=== PATIENT | female | born 1945 | race Caucasian/White ===

== ENCOUNTER 2016-04-28 14:26 | Outpatient (CLI) | payer MEDICARE | END 2016-04-28 14:27 | disposition home or self-care (01) | DX: Z12.31 Encounter for screening mammogram for malignant neoplasm of breast (principal) ==

== ENCOUNTER 2016-08-03 11:11 | Outpatient (CLI) | payer MEDICARE | END 2016-08-03 11:12 | disposition home or self-care (01) | DX: N39.0 Urinary tract infection, site not specified (principal) ==

== ENCOUNTER 2016-09-26 11:45 | Outpatient (CLI) | payer MEDICARE ==
[2016-09-26 19:52] LABS: WBC,URINE >25 /HPF (0-5)
== END 2016-09-26 11:46 | disposition home or self-care (01) ==
LOC: LAB.R 11:45
PROVIDERS: ATTEND Internal Medicine
DX: R30.0 Dysuria (principal)
CPT/HCPCS: 81001; 87077; 87086

== ENCOUNTER 2017-08-25 14:03 | Outpatient (CLI) | payer OTHER ==
[2017-08-25 18:27] LABS: BILIRUBIN,URINE NEGATIVE (NEGATIVE); GLUCOSE, URINE (UA) NEGATIVE (NEGATIVE); KETONES,URINE (UA) NEGATIVE (NEGATIVE); LEUKOCYTE ESTERASE, URINE SMALL (NEGATIVE); NITRITE,URINE POSITIVE (NEGATIVE); OCCULT BLOOD,URINE SMALL (NEGATIVE); PH,URINE 5.5 PH (5.0-7.5); PROTEIN,URINE NEGATIVE (NEGATIVE); UROBILINOGEN,URINE 0.2 (NORMAL) E.U./dL (NORMAL)
[2017-08-25 18:28] LABS: CLARITY,URINE CLEAR (CLEAR)
[2017-08-25 19:13] LABS: BACTERIA,URINE Many /HPF (None Seen); RBC,URINE 0-5 /HPF (0-5); SQUAMOUS EPITHELIAL CELL,UR FEW Squamous (<= Few)
== END 2017-08-25 14:04 | disposition home or self-care (01) ==
LOC: LAB.F 14:03
PROVIDERS: ATTEND Surgery
DX: N39.0 Urinary tract infection, site not specified (principal)
CPT/HCPCS: 81001; 87086; 87181

== ENCOUNTER 2018-03-20 18:20 | Emergency (ER) | payer MEDICARE, OTHER ==
--- NOTE | 2018-03-20 19:41 | XRAY Report ---
Reason: shortness of breath, congestion Procedure Date: 03/20/2018 Accession Number: [id number] / [id number] Procedure: XR - Chest 2 View X-Ray CPT Code: 24583 FULL RESULT: EXAM: CHEST RADIOGRAPHY EXAM DATE: 03/20/2018 06:53 PM. CLINICAL HISTORY: Shortness of breath, congestion. COMPARISON: CHEST 2 VIEW PA/LAT 01/10/2013 11:59 AM. TECHNIQUE: 2 views. FINDINGS: Lungs/Pleura: There is irregular masslike opacity in the right lower lobe, with a small cystic-appearing area that could represent a cavitation. This is new compared to the prior study. Better aeration in the left midlung zone compared to the prior exam. No effusions or pneumothoraces. Mediastinum: Heart and mediastinal contours are unremarkable. Other: None. IMPRESSION: Irregular masslike opacity in the right lower lobe, probably with an area of cavitation. Could represent infectious etiology, but underlying neoplasm cannot be excluded. A chest CT preferably with contrast is recommended. RAD[facility]
--- NOTE | 2018-03-20 21:23 | ED Physician Documentation ---
PD HPI DYSPNEA - Stated complaint Stated Complaint: WHEEZING/THROAT PX - Chief complaint Chief Complaint: Resp - History obtained from History obtained from: Patient - History of Present Illness Timing - onset: How many days ago (3) Timing - duration: Days Timing - details: Gradual onset, Waxing and waning Pain level now: 0 Improved by: Other (no ameliorating factors) Worsened by: Laying flat Associated symptoms: Fever (Tmax 101 (yesterday)), Cough, Wheezing. No: Hemoptysis, Chest pain / discomfort, Palpitations, Diaphoresis, Bilateral edema, Unilateral edema Similar symptoms before: Has not had sx before Recently seen: Not recently seen Review of Systems Constitutional: reports: Fever. denies: Fatigue Cardiac: denies: Chest pain / pressure, Palpitations, Pedal edema, Calf pain Respiratory: reports: Dyspnea, Cough, Wheezing. denies: Hemoptysis GI: reports: Reviewed and negative : denies: Dysuria, Frequency Musculoskeletal: denies: Extremity swelling PD PAST MEDICAL HISTORY - Past Medical History Cardiovascular: Hypertension, High cholesterol Respiratory: None Endocrine/Autoimmune: None GI: Other : None HEENT: Chronic vision loss, Chronic hearing loss Psych: None Musculoskeletal: Osteoarthritis Derm: None - Past Surgical History Past Surgical History: Yes /[employer]: Hysterectomy - Present Medications Home Medications: Ambulatory Orders Medication Instructions Recorded Confirmed Cholecalciferol (Vitamin D3) 1,000 unit PO 04/17/13 04/17/13 [Vitamin D] Lotensin 4 04/17/13 04/17/13 Enoxaparin [Lovenox] 120 mg SUBQ Q24H #10 syringe 03/21/18 Warfarin [Coumadin] 5 mg PO 1400 #20 tablet 03/21/18 - Allergies Allergies/Adverse Reactions: Allergies Allergy/AdvReac Type Severity Reaction Status Date / Time ciprofloxacin [From Cipro] Allergy Unknown Verified 03/20/18 18:30 - Social History Does the pt smoke?: No Smoking Status: Never smoker Does the pt drink ETOH?: Yes ETOH Use: Wine Does the pt have substance abuse?: No - Immunizations Immunizations are current?: Yes - POLST Patient has POLST: No PD ED PE NORMAL - Vitals Vital signs reviewed: Yes - General General: Alert and oriented X 3, No acute distress, Well developed/nourished - HEENT HEENT: Moist mucous membranes - Neck Neck: Supple, no meningeal sign - Cardiac Cardiac: RRR, No murmur - Respiratory Respiratory: No respiratory distress, Other (bilateral expiratory wheeze) - Abdomen Abdomen: Soft, Non tender - Extremities Extremities: No edema Results - Vitals Vitals: Vital Signs - 24 hr 03/20/18 03/20/18 03/21/18 18:24 20:09 01:37 Temperature 36.6 C 37.1 C Heart Rate 83 78 84 Respiratory 20 18 15 Rate Blood Pressure 146/94 H 129/91 H 139/89 H O2 Saturation 93 95 95 Oxygen O2 Source Room air - Labs Labs: Laboratory Tests 03/20/18 03/20/18 03/20/18 21:50 21:50 21:50 WBC 5.8 RBC 4.76 Hgb 14.4 Hct 41.9 MCV 88.1 MCH 30.2 MCHC 34.3 RDW 13.7 Plt Count 155 MPV 7.5 L Neut # (Auto) 2.9 Lymph # (Auto) 2.0 [place] # (Auto) 0.8 Eos # (Auto) 0.1 Baso # (Auto) 0.0 Absolute Nucleated RBC 0.01 Nucleated RBC % 0.1 PT 12.8 H INR 1.1 APTT 27.9 Sodium 137 Potassium 3.3 L Chloride 104 Carbon Dioxide 24 Anion Gap 9.0 BUN 13 Creatinine 0.7 Estimated GFR (MDRD) 82 L Glucose 125 H Calcium 9.2 Total Bilirubin 0.7 AST 16 ALT 12 Alkaline Phosphatase 62 Total Protein 7.1 Albumin 3.9 Globulin 3.2 Albumin/Globulin Ratio 1.2 Lipase 34 - Rads (name of study) chest xray Radiology: Prelim report reviewed, See rad report CT chest w/ contrast Radiology: Prelim report reviewed, See rad report PD MEDICAL DECISION MAKING - ED course Complexity details: reviewed results, re-evaluated patient, considered differential, d/w patient ED course: D/W Dr. Ojeda; she says patient can be treated outpatient setting if symptoms are controlled and vital signs are stable. Patient feels quite comfortable with d/c home. In regards to anticoagulation, patient specifically requests warfarin. Her is on warfarin and she is familiar with the testing it requires and the possible adjustments needed in dosing according to PT/INR testing; she prefers this medication over the NOAC medications because it can be reliably and rapidly reversed. Departure - Departure Disposition: Home, Self Care Clinical Impression: Pulmonary embolism Qualifiers: Pulmonary embolism type: other Chronicity: acute Acute cor pulmonale presence: without acute cor pulmonale Qualified Code(s): I26.99 - Other pulmonary embolism without acute cor pulmonale Condition: Good Instructions: Lovenox, Warfarin Follow-Up: ZELALEM MOULTON DO [Primary Care Provider] - Within 3 Days Prescriptions: Enoxaparin [Lovenox] 120 mg SUBQ Q24H #10 syringe Warfarin [Coumadin] 5 mg PO 1400 #20 tablet Discharge Date/Time: 03/21/18 02:54
[2018-03-20] MEDS ORDERED: IPRATROPIUM/ALBUTEROL 3 ML NEB INH STA (21:33)
[2018-03-20 21:56] LABS: BASOPHILS % (AUTO) 0.6 %; EOSINOPHILS # (AUTO) 0.1 10^3/uL (0.0-0.7); EOSINOPHILS % (AUTO) 1.7 %; HGB - HEMOGLOBIN 14.4 g/dL (12.0-16.0); LYMPHOCYTES % (AUTO) 34.5 %; MEAN CORPUSCULAR HEMOGLOBIN 30.2 pg (27.0-31.0); MEAN CORPUSCULAR HGB CONC 34.3 g/dL (32.0-36.0); MEAN CORPUSCULAR VOLUME 88.1 fL (81.0-99.0); MEAN PLATELET VOLUME 7.5 fL (7.9-10.8); MONOCYTES # (AUTO) 0.8 10^3/uL (0.0-1.0); MONOCYTES % (AUTO) 13.2 %; NEUTROPHILS # (AUTO) 2.9 10^3/uL (1.5-6.6); PLT - PLATELET COUNT 155 10^3/uL (130-450); RED BLOOD COUNT 4.76 10^6/uL (4.20-5.40); RED CELL DISTRIBUTION WIDTH 13.7 % (12.0-15.0); WHITE BLOOD COUNT 5.8 x10^3/uL (4.8-10.8)
[2018-03-20 22:19] LABS: ALBUMIN 3.9 g/dL (3.2-5.5); ALBUMIN/GLOBULIN RATIO 1.2 (1.0-2.2); BILIRUBIN,TOTAL 0.7 mg/dL (0.2-1.0); CALCIUM 9.2 mg/dL (8.5-10.3); CREATININE 0.7 mg/dL (0.4-1.0); TOTAL PROTEIN 7.1 g/dL (6.7-8.2)
[2018-03-20] MEDS ORDERED: IOVERSOL 320 100 ML VIAL IVP ONE (23:58)
--- NOTE | 2018-03-21 00:30 | CT Report ---
Reason: right lower lobe mass Procedure Date: 03/21/2018 Accession Number: [id number] / [id number] Procedure: CT - Chest W/ CPT Code: FULL RESULT: EXAM: CT CHEST EXAM DATE: 03/21/2018 12:20 AM. CLINICAL HISTORY: Right lower lobe mass. COMPARISONS: None. TECHNIQUE: Routine helical CT imaging was performed through the chest. IV contrast: 100 mL Optiray 320. Reconstructions: Coronal and sagittal. In accordance with CT protocol optimization, one or more of the following dose reduction techniques were utilized for this exam: automated exposure control, adjustment of mA and/or KV based on patient size, or use of iterative reconstructive technique. FINDINGS: Lungs/Pleura: There is a 5.6 x 2.7 cm focus of right lower lobe airspace consolidation with ill-defined margins. No associated pleural effusion. The left lung is clear. Mediastinum: Normal heart size. No pericardial effusion. Borderline dilatation of the ascending thoracic aorta which measures 4 cm in diameter. There is an eccentric right lower lobe pulmonary artery filling defect with more acute appearing filling defects in the right upper and lower lobe segmental branches. Bones: Unremarkable. Visualized Abdomen: Bilateral upper pole renal cyst. A small stone is seen within the gallbladder. Other: There is a 3.0 x 2.4 cm exophytic posterior right thyroid lobe nodule abutting the esophagus. IMPRESSION: 1. Multiple right lung pulmonary emboli. There is right lower lobe airspace consolidation the appearance of which is more consistent with pneumonia or pulmonary infarct. 2. Cholelithiasis. 3. Borderline dilatation of the ascending thoracic aorta to 4 cm. 4. Exophytic, 3.0 x 2.4 cm posterior right thyroid lobe nodule. [facility]
[2018-03-21 01:38] VITALS: BP 139/89
[2018-03-21] MEDS ORDERED: ENOXAPARIN 100 MG/ML SYRINGE SUBQ STA (02:35)
[2018-03-21] MEDS ORDERED: WARFARIN 5 MG TABLET PO STA (02:35)
[2018-03-21 02:52] LABS: INR 1.1 (0.8-1.2); PT - PROTHROMBIN TIME 12.8 secs (9.9-12.6)
[2018-03-21] MEDS ORDERED: IOVERSOL 320 100 ML VIAL IVP ONE ×2 (03:29)
== END 2018-03-21 02:54 | disposition home or self-care (01) ==
LOC: ED 18:20
DX: I26.99 Other pulmonary embolism without acute cor pulmonale (principal); Z79.01 Long term (current) use of anticoagulants; I10 Essential (primary) hypertension; E78.00 Pure hypercholesterolemia, unspecified
CPT/HCPCS: 36415; 71046; 71260; 80053; 83690; 85025; 85610; 85730; 94640; 99283; 99284; A9270; J1650; Q9967

== ENCOUNTER 2018-05-08 13:41 | Outpatient (CLI) | payer MEDICARE ==
[2018-05-08 17:47] LABS: INR 3.4 (0.8-1.2); PT - PROTHROMBIN TIME 38.4 secs (9.9-12.6)
== END 2018-05-08 13:42 | disposition home or self-care (01) ==
LOC: LAB.F 13:41
PROVIDERS: ATTEND Pharmacist
DX: Z79.01 Long term (current) use of anticoagulants (principal); I26.99 Other pulmonary embolism without acute cor pulmonale
CPT/HCPCS: 36415; 85610

== ENCOUNTER 2019-05-24 13:14 | Outpatient (CLI) | payer MEDICARE | END 2019-05-24 13:15 | disposition home or self-care (01) | LOC: LAB.S 13:14 | PROVIDERS: ATTEND Internal Medicine | DX: I26.99 Other pulmonary embolism without acute cor pulmonale (principal); Z79.01 Long term (current) use of anticoagulants | CPT/HCPCS: 85610 ==

== ENCOUNTER 2019-06-12 09:42 | Outpatient (CLI) | payer MEDICARE | END 2019-06-12 09:43 | disposition home or self-care (01) | LOC: LAB.S 09:42 | PROVIDERS: ATTEND Internal Medicine | DX: I26.99 Other pulmonary embolism without acute cor pulmonale (principal); Z79.01 Long term (current) use of anticoagulants | CPT/HCPCS: 85610 ==

== ENCOUNTER 2019-07-15 08:29 | Outpatient (CLI) | payer MEDICARE | END 2019-07-15 08:30 | disposition home or self-care (01) | LOC: LAB 08:29 | PROVIDERS: ATTEND Internal Medicine | DX: I26.99 Other pulmonary embolism without acute cor pulmonale (principal); Z79.01 Long term (current) use of anticoagulants | CPT/HCPCS: 85610 ==

== ENCOUNTER 2019-08-01 07:22 | Outpatient (CLI) | payer MEDICARE | END 2019-08-01 07:23 | disposition home or self-care (01) | LOC: LAB 07:22 | PROVIDERS: ATTEND Internal Medicine | DX: I26.99 Other pulmonary embolism without acute cor pulmonale (principal); Z79.01 Long term (current) use of anticoagulants | CPT/HCPCS: 85610 ==

== ENCOUNTER 2019-08-29 13:38 | Outpatient (CLI) | payer MEDICARE | END 2019-08-29 13:39 | disposition home or self-care (01) | LOC: LAB 13:38 | PROVIDERS: ATTEND Internal Medicine | DX: I26.99 Other pulmonary embolism without acute cor pulmonale (principal); Z79.01 Long term (current) use of anticoagulants | CPT/HCPCS: 85610 ==

== ENCOUNTER 2019-10-08 14:34 | Outpatient (CLI) | payer MEDICARE | END 2019-10-08 14:35 | disposition home or self-care (01) | LOC: LAB.S 14:34 | PROVIDERS: ATTEND Internal Medicine | DX: Z79.01 Long term (current) use of anticoagulants (principal) | CPT/HCPCS: 85610 ==

== ENCOUNTER 2019-10-11 11:24 | Outpatient (CLI) | payer MEDICARE | END 2019-10-11 11:25 | disposition home or self-care (01) | LOC: LAB.S 11:24 | PROVIDERS: ATTEND Urology | DX: R30.0 Dysuria (principal) | CPT/HCPCS: 87086 ==

== ENCOUNTER 2019-10-15 15:09 | Outpatient (CLI) | payer MEDICARE | END 2019-10-15 15:10 | disposition home or self-care (01) | LOC: LAB.S 15:09 | PROVIDERS: ATTEND Internal Medicine | DX: Z79.01 Long term (current) use of anticoagulants (principal) | CPT/HCPCS: 85610 ==

== ENCOUNTER 2019-10-22 14:25 | Outpatient (CLI) | payer MEDICARE | END 2019-10-22 14:26 | disposition home or self-care (01) | LOC: LAB.S 14:25 | PROVIDERS: ATTEND Internal Medicine | DX: Z79.01 Long term (current) use of anticoagulants (principal) | CPT/HCPCS: 85610 ==

== ENCOUNTER 2019-11-19 14:18 | Outpatient (CLI) | payer MEDICARE | END 2019-11-19 14:19 | disposition home or self-care (01) | LOC: LAB.S 14:18 | PROVIDERS: ATTEND Internal Medicine | DX: Z79.01 Long term (current) use of anticoagulants (principal) | CPT/HCPCS: 85610 ==

== ENCOUNTER 2019-12-20 15:14 | Outpatient (CLI) | payer MEDICARE | END 2019-12-20 15:15 | disposition home or self-care (01) | LOC: LAB.S 15:14 | PROVIDERS: ATTEND Internal Medicine | DX: Z79.01 Long term (current) use of anticoagulants (principal) | CPT/HCPCS: 85610 ==

== ENCOUNTER 2020-01-01 14:21 | Outpatient (CLI) | payer MEDICARE | END 2020-01-01 14:22 | disposition home or self-care (01) | LOC: LAB.S 14:21 | PROVIDERS: ATTEND Internal Medicine | DX: Z79.01 Long term (current) use of anticoagulants (principal) | CPT/HCPCS: 85610 ==

== ENCOUNTER 2020-01-24 16:58 | Outpatient (CLI) | payer MEDICARE ==
[2020-01-24 20:42] LABS: BILIRUBIN,URINE NEGATIVE (NEGATIVE); GLUCOSE, URINE (UA) NEGATIVE (NEGATIVE); KETONES,URINE (UA) NEGATIVE (NEGATIVE); LEUKOCYTE ESTERASE, URINE MODERATE (NEGATIVE); NITRITE,URINE NEGATIVE (NEGATIVE); OCCULT BLOOD,URINE SMALL (NEGATIVE); PROTEIN,URINE NEGATIVE (NEGATIVE); UROBILINOGEN,URINE 0.2 (NORMAL) E.U./dL (NORMAL)
[2020-01-24 21:02] LABS: BACTERIA,URINE Many /HPF (None Seen); CLARITY,URINE CLOUDY (CLEAR); SQUAMOUS EPITHELIAL CELL,UR RARE Squamous (<= Few)
[2020-01-24 21:03] LABS: CRYSTALS,URINE 3-5 Calcium Oxalate /LPF
== END 2020-01-24 16:59 | disposition home or self-care (01) ==
LOC: LAB.S 16:58
PROVIDERS: ATTEND Internal Medicine
DX: R82.90 Unspecified abnormal findings in urine (principal); R35.0 Frequency of micturition
CPT/HCPCS: 81001; 87086; 87181

== ENCOUNTER 2020-02-19 15:30 | Outpatient (CLI) | payer MEDICARE | END 2020-02-19 15:31 | disposition home or self-care (01) | LOC: LAB.S 15:30 | PROVIDERS: ATTEND Internal Medicine | DX: Z79.01 Long term (current) use of anticoagulants (principal) | CPT/HCPCS: 85610 ==

== ENCOUNTER 2020-03-20 13:42 | Outpatient (CLI) | payer MEDICARE | END 2020-03-20 13:43 | disposition home or self-care (01) | LOC: LAB.S 13:42 | PROVIDERS: ATTEND Internal Medicine | DX: Z79.01 Long term (current) use of anticoagulants (principal) | CPT/HCPCS: 85610 ==

== ENCOUNTER 2020-03-21 13:48 | Outpatient (CLI) | payer MEDICARE ==
[2020-03-21 18:51] LABS: BILIRUBIN,URINE NEGATIVE (NEGATIVE); GLUCOSE, URINE (UA) NEGATIVE (NEGATIVE); KETONES,URINE (UA) NEGATIVE (NEGATIVE); LEUKOCYTE ESTERASE, URINE SMALL (NEGATIVE); NITRITE,URINE NEGATIVE (NEGATIVE); OCCULT BLOOD,URINE SMALL (NEGATIVE); PROTEIN,URINE NEGATIVE (NEGATIVE); UROBILINOGEN,URINE 0.2 (NORMAL) E.U./dL (NORMAL)
[2020-03-21 18:57] LABS: BACTERIA,URINE Many /HPF (None Seen); CLARITY,URINE HAZY (CLEAR); SQUAMOUS EPITHELIAL CELL,UR FEW Squamous (<= Few); WBC CLUMPS,URINE PRESENT
== END 2020-03-21 13:49 | disposition home or self-care (01) ==
LOC: LAB.S 13:48
PROVIDERS: ATTEND Surgery
DX: R30.0 Dysuria (principal)
CPT/HCPCS: 81001; 87077; 87086; 87181

== ENCOUNTER 2020-04-14 14:22 | Outpatient (CLI) | payer MEDICARE ==
[2020-04-14 20:45] LABS: BILIRUBIN,URINE NEGATIVE (NEGATIVE); GLUCOSE, URINE (UA) NEGATIVE (NEGATIVE); KETONES,URINE (UA) NEGATIVE (NEGATIVE); LEUKOCYTE ESTERASE, URINE TRACE (NEGATIVE); NITRITE,URINE NEGATIVE (NEGATIVE); OCCULT BLOOD,URINE SMALL (NEGATIVE); PH,URINE 5.5 PH (5.0-7.5); PROTEIN,URINE NEGATIVE (NEGATIVE); UROBILINOGEN,URINE 0.2 (NORMAL) E.U./dL (NORMAL)
[2020-04-14 20:53] LABS: CLARITY,URINE HAZY (CLEAR)
[2020-04-14 20:54] LABS: BACTERIA,URINE Few /HPF (None Seen); RBC,URINE 0-5 /HPF (0-5); SQUAMOUS EPITHELIAL CELL,UR FEW Squamous (<= Few)
== END 2020-04-14 14:23 | disposition home or self-care (01) ==
LOC: LAB.S 14:22
PROVIDERS: ATTEND Urology
DX: R30.0 Dysuria (principal)
CPT/HCPCS: 81001; 87086; 87181

== ENCOUNTER 2020-04-21 13:06 | Outpatient (CLI) | payer MEDICARE | END 2020-04-21 13:07 | disposition home or self-care (01) | LOC: LAB.S 13:06 | PROVIDERS: ATTEND Internal Medicine | DX: Z79.01 Long term (current) use of anticoagulants (principal) | CPT/HCPCS: 85610 ==

== ENCOUNTER 2020-05-05 07:00 | Outpatient (CLI) | payer MEDICARE | END 2020-05-05 23:59 | disposition home or self-care (01) | LOC: LAB 07:00 | PROVIDERS: ATTEND Internal Medicine | DX: Z79.01 Long term (current) use of anticoagulants (principal) | CPT/HCPCS: 85610 ==

== ENCOUNTER 2020-06-12 18:27 | Outpatient (CLI) | payer MEDICARE | END 2020-06-12 18:28 | disposition home or self-care (01) | LOC: COV 18:27 | PROVIDERS: ATTEND Dermatology | DX: Z01.812 Encounter for preprocedural laboratory examination (principal); C44.311 Basal cell carcinoma of skin of nose; Z20.822 Contact with and (suspected) exposure to COVID-19 ==

== ENCOUNTER 2020-06-22 14:31 | Outpatient (CLI) | payer MEDICARE | END 2020-06-22 14:32 | disposition home or self-care (01) | LOC: LAB.S 14:31 | PROVIDERS: ATTEND Internal Medicine | DX: Z79.01 Long term (current) use of anticoagulants (principal) | CPT/HCPCS: 85610 ==

== ENCOUNTER 2020-07-13 12:48 | Outpatient (CLI) | payer MEDICARE | END 2020-07-13 12:49 | disposition home or self-care (01) | LOC: LAB 12:48 | PROVIDERS: ATTEND Internal Medicine | DX: Z01.812 Encounter for preprocedural laboratory examination (principal); Z79.01 Long term (current) use of anticoagulants; C44.311 Basal cell carcinoma of skin of nose; Z20.822 Contact with and (suspected) exposure to COVID-19 | CPT/HCPCS: 85610; U0004 ==

== ENCOUNTER 2020-07-13 17:15 | Outpatient (CLI) | payer MEDICARE | END 2020-07-13 17:16 | disposition home or self-care (01) | LOC: COV 17:15 | PROVIDERS: ATTEND Dermatology | DX: Z01.812 Encounter for preprocedural laboratory examination (principal); C44.311 Basal cell carcinoma of skin of nose; Z20.822 Contact with and (suspected) exposure to COVID-19 ==

== ENCOUNTER 2020-08-24 14:43 | Outpatient (CLI) | payer MEDICARE | END 2020-08-24 14:44 | disposition home or self-care (01) | LOC: LAB.S 14:43 | PROVIDERS: ATTEND Internal Medicine | DX: Z79.01 Long term (current) use of anticoagulants (principal) | CPT/HCPCS: 36416; 85610 ==

== ENCOUNTER 2020-09-25 14:50 | Outpatient (CLI) | payer MEDICARE | END 2020-09-25 14:51 | disposition home or self-care (01) | LOC: LAB.S 14:50 | PROVIDERS: ATTEND Internal Medicine | DX: Z79.01 Long term (current) use of anticoagulants (principal) | CPT/HCPCS: 85610 ==

== ENCOUNTER 2020-10-23 15:28 | Outpatient (CLI) | payer MEDICARE | END 2020-10-23 15:29 | disposition home or self-care (01) | LOC: LAB.S 15:28 | PROVIDERS: ATTEND Internal Medicine | DX: Z79.01 Long term (current) use of anticoagulants (principal) | CPT/HCPCS: 36416; 85610 ==

== ENCOUNTER 2020-11-27 15:11 | Outpatient (CLI) | payer MEDICARE | END 2020-11-27 15:12 | disposition home or self-care (01) | LOC: LAB.S 15:11 | PROVIDERS: ATTEND Internal Medicine | DX: Z79.01 Long term (current) use of anticoagulants (principal) | CPT/HCPCS: 85610 ==

== ENCOUNTER 2020-12-30 15:00 | Outpatient (CLI) | payer MEDICARE | END 2020-12-30 15:01 | disposition home or self-care (01) | LOC: LAB.S 15:00 | PROVIDERS: ATTEND Internal Medicine | DX: Z79.01 Long term (current) use of anticoagulants (principal) | CPT/HCPCS: 36416; 85610 ==

== ENCOUNTER 2021-01-29 15:03 | Outpatient (CLI) | payer MEDICARE | END 2021-01-29 15:04 | disposition home or self-care (01) | LOC: LAB.S 15:03 | PROVIDERS: ATTEND Internal Medicine | DX: Z79.01 Long term (current) use of anticoagulants (principal) | CPT/HCPCS: 36416; 85610 ==

== ENCOUNTER 2021-03-02 10:07 | Outpatient (CLI) | payer MEDICARE | END 2021-03-02 10:08 | disposition home or self-care (01) | LOC: LAB.S 10:07 | PROVIDERS: ATTEND Internal Medicine | DX: Z79.01 Long term (current) use of anticoagulants (principal) | CPT/HCPCS: 36416; 85610 ==

== ENCOUNTER 2021-04-06 16:06 | Outpatient (CLI) | payer MEDICARE | END 2021-04-06 16:07 | disposition home or self-care (01) | LOC: LAB.S 16:06 | PROVIDERS: ATTEND Internal Medicine | DX: Z79.01 Long term (current) use of anticoagulants (principal) | CPT/HCPCS: 36416; 85610 ==

== ENCOUNTER 2021-05-17 14:25 | Outpatient (CLI) | payer MEDICARE | END 2021-05-17 14:26 | disposition home or self-care (01) | LOC: LAB.S 14:25 | PROVIDERS: ATTEND Internal Medicine | DX: Z79.01 Long term (current) use of anticoagulants (principal) | CPT/HCPCS: 36416; 85610 ==

== ENCOUNTER 2021-06-09 14:57 | Outpatient (CLI) | payer MEDICARE | END 2021-06-09 14:58 | disposition home or self-care (01) | LOC: LAB.S 14:57 | PROVIDERS: ATTEND Internal Medicine | DX: Z79.01 Long term (current) use of anticoagulants (principal) | CPT/HCPCS: 36416; 85610 ==

== ENCOUNTER 2021-07-09 15:14 | Outpatient (CLI) | payer MEDICARE | END 2021-07-09 15:15 | disposition home or self-care (01) | LOC: LAB.S 15:14 | PROVIDERS: ATTEND Internal Medicine | DX: Z79.01 Long term (current) use of anticoagulants (principal) | CPT/HCPCS: 36416; 85610 ==

== ENCOUNTER 2021-08-05 14:29 | Outpatient (CLI) | payer MEDICARE | END 2021-08-05 14:30 | disposition home or self-care (01) | LOC: LAB.S 14:29 | PROVIDERS: ATTEND Internal Medicine | DX: Z79.01 Long term (current) use of anticoagulants (principal) | CPT/HCPCS: 36416; 85610 ==

== ENCOUNTER 2021-08-17 11:39 | Outpatient (CLI) | payer MEDICARE | END 2021-08-17 11:40 | disposition home or self-care (01) | LOC: LAB.S 11:39 | PROVIDERS: ATTEND Internal Medicine | DX: Z79.01 Long term (current) use of anticoagulants (principal) | CPT/HCPCS: 36416; 85610 ==

== ENCOUNTER 2021-09-22 15:08 | Outpatient (CLI) | payer MEDICARE | END 2021-09-22 15:09 | disposition home or self-care (01) | LOC: LAB.S 15:08 | PROVIDERS: ATTEND Internal Medicine | DX: Z79.01 Long term (current) use of anticoagulants (principal) | CPT/HCPCS: 36416; 85610 ==

== ENCOUNTER 2021-10-22 08:35 | Outpatient (CLI) | payer MEDICARE | END 2021-10-22 08:36 | disposition home or self-care (01) | LOC: LAB.S 08:35 | PROVIDERS: ATTEND Internal Medicine | DX: Z79.01 Long term (current) use of anticoagulants (principal) | CPT/HCPCS: 36416; 85610 ==

== ENCOUNTER 2021-12-24 07:21 | Outpatient (CLI) | payer MEDICARE | END 2021-12-24 07:22 | disposition home or self-care (01) | LOC: LAB.S 07:21 | PROVIDERS: ATTEND Internal Medicine | DX: Z79.01 Long term (current) use of anticoagulants (principal) | CPT/HCPCS: 36416; 85610 ==

== ENCOUNTER 2022-01-25 09:29 | Outpatient (CLI) | payer MEDICARE | END 2022-01-25 09:30 | disposition home or self-care (01) | LOC: LAB.S 09:29 | PROVIDERS: ATTEND Internal Medicine | DX: Z79.01 Long term (current) use of anticoagulants (principal) | CPT/HCPCS: 36416; 85610 ==

== ENCOUNTER 2022-03-01 08:28 | Outpatient (CLI) | payer MEDICARE | END 2022-03-01 08:29 | disposition home or self-care (01) | LOC: LAB.S 08:28 | PROVIDERS: ATTEND Internal Medicine | DX: Z79.01 Long term (current) use of anticoagulants (principal) | CPT/HCPCS: 36416; 85610 ==

== ENCOUNTER 2022-03-30 11:20 | Outpatient (CLI) | payer MEDICARE | END 2022-03-30 11:21 | disposition home or self-care (01) | LOC: LAB.S 11:20 | PROVIDERS: ATTEND Internal Medicine | DX: Z79.01 Long term (current) use of anticoagulants (principal) | CPT/HCPCS: 36416; 85610 ==

== ENCOUNTER 2022-04-28 09:27 | Outpatient (CLI) | payer MEDICARE | END 2022-04-28 09:28 | disposition home or self-care (01) | LOC: LAB.S 09:27 | PROVIDERS: ATTEND Family Medicine | DX: Z79.01 Long term (current) use of anticoagulants (principal) | CPT/HCPCS: 36416; 85610 ==

== ENCOUNTER 2022-06-23 10:02 | Outpatient (CLI) | payer MEDICARE | END 2022-06-23 10:03 | disposition home or self-care (01) | LOC: LAB.S 10:02 | PROVIDERS: ATTEND Family Medicine | DX: Z79.01 Long term (current) use of anticoagulants (principal) | CPT/HCPCS: 36416; 85610 ==

== ENCOUNTER 2022-07-26 10:01 | Outpatient (CLI) | payer MEDICARE | END 2022-07-26 10:02 | disposition home or self-care (01) | LOC: LAB.S 10:01 | PROVIDERS: ATTEND Family Medicine | DX: Z79.01 Long term (current) use of anticoagulants (principal) | CPT/HCPCS: 36416; 85610 ==

== ENCOUNTER 2022-08-23 09:30 | Outpatient (CLI) | payer MEDICARE | END 2022-08-23 09:31 | disposition home or self-care (01) | LOC: LAB.S 09:30 | PROVIDERS: ATTEND Family Medicine | DX: Z79.01 Long term (current) use of anticoagulants (principal) | CPT/HCPCS: 36416; 85610 ==

== ENCOUNTER 2022-09-27 08:35 | Outpatient (CLI) | payer MEDICARE | END 2022-09-27 08:36 | disposition home or self-care (01) | LOC: LAB.S 08:35 | PROVIDERS: ATTEND Family Medicine | DX: Z79.01 Long term (current) use of anticoagulants (principal) | CPT/HCPCS: 36416; 85610 ==

== ENCOUNTER 2022-10-25 09:18 | Outpatient (CLI) | payer MEDICARE | END 2022-10-25 09:19 | disposition home or self-care (01) | LOC: LAB.S 09:18 | PROVIDERS: ATTEND Family Medicine | DX: Z79.01 Long term (current) use of anticoagulants (principal) | CPT/HCPCS: 36416; 85610 ==

== ENCOUNTER 2022-11-22 09:27 | Outpatient (CLI) | payer MEDICARE | END 2022-11-22 09:28 | disposition home or self-care (01) | LOC: LAB.S 09:27 | PROVIDERS: ATTEND Family Medicine | DX: Z79.01 Long term (current) use of anticoagulants (principal) | CPT/HCPCS: 36416; 85610 ==

== ENCOUNTER 2022-12-21 07:25 | Outpatient (CLI) | payer MEDICARE | END 2022-12-21 07:26 | disposition home or self-care (01) | LOC: LAB.S 07:25 | PROVIDERS: ATTEND Nurse Practitioner Family | DX: Z79.01 Long term (current) use of anticoagulants (principal); Z86.711 Personal history of pulmonary embolism | CPT/HCPCS: 36416; 85610 ==

== ENCOUNTER 2023-01-20 07:09 | Outpatient (CLI) | payer MEDICARE ==
[2023-01-20 14:23] LABS: HCT - HEMATOCRIT 44.4 % (37.0-47.0); HGB - HEMOGLOBIN 14.5 g/dL (12.0-16.0); MEAN CORPUSCULAR HEMOGLOBIN 29.4 pg (27.0-31.0); MEAN CORPUSCULAR HGB CONC 32.7 g/dL (32.0-36.0); MEAN CORPUSCULAR VOLUME 89.9 fL (81.0-99.0); MEAN PLATELET VOLUME 9.3 fL (7.9-10.8); RED BLOOD COUNT 4.94 10^6/uL (4.20-5.40); WHITE BLOOD COUNT 4.6 x10^3/uL (4.8-10.8)
== END 2023-01-20 07:10 | disposition home or self-care (01) ==
LOC: LAB.S 07:09
PROVIDERS: ATTEND Nurse Practitioner Family
DX: Z79.01 Long term (current) use of anticoagulants (principal); Z86.711 Personal history of pulmonary embolism
CPT/HCPCS: 36415; 85027; 85610

== ENCOUNTER 2023-02-15 09:28 | Outpatient (CLI) | payer MEDICARE | END 2023-02-15 09:29 | disposition home or self-care (01) | LOC: LAB.S 09:28 | PROVIDERS: ATTEND Nurse Practitioner Family | DX: Z79.01 Long term (current) use of anticoagulants (principal); Z86.711 Personal history of pulmonary embolism | CPT/HCPCS: 36416; 85610 ==

== ENCOUNTER 2023-03-29 09:16 | Outpatient (CLI) | payer MEDICARE | END 2023-03-29 09:17 | disposition home or self-care (01) | LOC: LAB.S 09:16 | PROVIDERS: ATTEND Nurse Practitioner Family | DX: Z51.81 Encounter for therapeutic drug level monitoring (principal); Z79.01 Long term (current) use of anticoagulants; Z86.711 Personal history of pulmonary embolism | CPT/HCPCS: 36416; 85610 ==

== ENCOUNTER 2023-04-06 09:23 | Outpatient (CLI) | payer MEDICARE | END 2023-04-06 09:24 | disposition home or self-care (01) | LOC: LAB.S 09:23 | PROVIDERS: ATTEND Nurse Practitioner Family | DX: Z51.81 Encounter for therapeutic drug level monitoring (principal); Z79.01 Long term (current) use of anticoagulants; Z86.711 Personal history of pulmonary embolism | CPT/HCPCS: 36416; 85610 ==

== ENCOUNTER 2023-04-13 06:06 | Outpatient (CLI) | payer MEDICARE | END 2023-04-13 06:07 | disposition short-term general hospital (02) | LOC: EMS 06:06 | DX: M25.552 Pain in left hip (principal); M25.562 Pain in left knee; W18.11XA Fall from or off toilet without subsequent striking against object, initial encounter; Y93.E8 Activity, other personal hygiene; Y92.003 Bedroom of unspecified non-institutional (private) residence as the place of occurrence of the external cause | CPT/HCPCS: A0425; A0427 ==

== ENCOUNTER 2023-05-15 11:49 | Outpatient (CLI) | payer MEDICARE ==
[2023-05-15 11:59] LABS: BASOPHILS % (AUTO) 0.4 %; EOSINOPHILS # (AUTO) 0.1 10^3/uL (0.0-0.7); HCT - HEMATOCRIT 38.8 % (37.0-47.0); HGB - HEMOGLOBIN 12.4 g/dL (12.0-16.0); LYMPHOCYTES % (AUTO) 40.6 %; MEAN CORPUSCULAR HEMOGLOBIN 30.9 pg (27.0-31.0); MEAN CORPUSCULAR VOLUME 96.8 fL (81.0-99.0); MEAN PLATELET VOLUME 9.5 fL (7.9-10.8); MONOCYTES # (AUTO) 0.4 10^3/uL (0.0-1.0); MONOCYTES % (AUTO) 7.6 %; NEUTROPHILS # (AUTO) 2.5 10^3/uL (1.5-6.6); NEUTROPHILS % (AUTO) 50.2 %; PLT - PLATELET COUNT 242 10^3/uL (130-450); RED BLOOD COUNT 4.01 10^6/uL (4.20-5.40)
[2023-05-15 12:12] LABS: % IRON SATURATION 24 % (20-50); IRON 69 ug/dL (50-212); TOTAL IRON BINDING CAPACITY 287 ug/dL (250-450); TRANSFERRIN 205 mg/dL (203-362)
== END 2023-05-15 11:50 | disposition home or self-care (01) ==
LOC: LAB.R 11:49
DX: Z79.01 Long term (current) use of anticoagulants (principal)
CPT/HCPCS: 83540; 84466; 85025

== ENCOUNTER 2023-07-06 09:55 | Outpatient (CLI) | payer MEDICARE | END 2023-07-06 09:56 | disposition home or self-care (01) | LOC: LAB.S 09:55 | PROVIDERS: ATTEND Nurse Practitioner Family | DX: Z51.81 Encounter for therapeutic drug level monitoring (principal); Z79.01 Long term (current) use of anticoagulants; Z86.711 Personal history of pulmonary embolism | CPT/HCPCS: 36416; 85610 ==

== ENCOUNTER 2023-07-26 07:08 | Outpatient (CLI) | payer MEDICARE | END 2023-07-26 07:09 | disposition home or self-care (01) | LOC: LAB.S 07:08 | PROVIDERS: ATTEND Nurse Practitioner Family | DX: Z79.01 Long term (current) use of anticoagulants (principal); Z86.711 Personal history of pulmonary embolism | CPT/HCPCS: 36415; 36416; 85027; 85610 ==

== ENCOUNTER 2023-08-07 08:58 | Outpatient (CLI) | payer MEDICARE | END 2023-08-07 08:59 | disposition home or self-care (01) | LOC: LAB.S 08:58 | PROVIDERS: ATTEND Nurse Practitioner Family | DX: Z51.81 Encounter for therapeutic drug level monitoring (principal); Z79.01 Long term (current) use of anticoagulants; Z86.711 Personal history of pulmonary embolism | CPT/HCPCS: 36416; 85610 ==